=== PATIENT | male | born 1955 | race Caucasian/White ===

== ENCOUNTER 2016-12-23 10:04 | Observation (INO) | payer BC, OTHER ==
[2016-12-23] MEDS ORDERED: TEMAZEPAM 15 MG CAP PO PRN (10:14)
[2016-12-23] MEDS ORDERED: ACETAMINOPHEN 325 MG TAB PO PRN (10:14)
[2016-12-23] MEDS ORDERED: NS 1,000 ML IV SCH (10:14)
[2016-12-23] MEDS ORDERED: NITROGLYCERIN 0.4 MG BTL SL PRN (10:14)
[2016-12-23] MEDS ORDERED: FAMOTIDINE 20 MG TAB PO ONE (10:14)
[2016-12-23] MEDS ORDERED: diphenhydrAMINE 25 MG CAP PO ONE ×2 (10:14→10:30)
[2016-12-23] MEDS ORDERED: ASPIRIN EC 325 MG TAB PO ONE ×2 (10:14→13:45)
[2016-12-23] MEDS ORDERED: DIAZEPAM 5 MG TAB PO ONE (10:14)
--- NOTE | 2016-12-23 10:27 | CPEKG ---
Heart Rate: 64 RR Interval: 938 P-R Interval: 164 QRSD Interval: 80 QT Interval: 408 QTC Interval: 421 P [place]: 24 QRS [place]: -25 T Wave [place]: 45 EKG Severity - OTHERWISE NORMAL ECG - EKG Impression: SINUS RHYTHM EKG Impression: BORDERLINE LEFT AXIS DEVIATION Electronically Signed By: Vince Hill 24-Dec-2016 06:36:28
[2016-12-23] MEDS ORDERED: FAMOTIDINE 20 MG TAB ONE (10:30)
[2016-12-23] MEDS ORDERED: DIAZEPAM 5 MG TAB ONE (10:30)
[2016-12-23 10:47] LABS: % IMMATURE GRANULYOCYTES 0.3 % (0.0-1.1); ABSOLUTE IMMATURE GRANULOCYTES 0.03 10^3/uL (0.00-0.10); ADD DIFF? NO; ADD MORPH? NO; ADD SCAN? NO; ATYPICAL LYMPHOCYTE FLAG 0 (0-99); FRAGMENT RBC FLAG 0 (0-99); HEMATOCRIT 47.8 % (40.0-51.0); HEMOGLOBIN 15.8 g/dL (13.7-17.5); LEFT SHIFT FLG 0 (0-99); LIPEMIA HEMOLYSIS FLAG 80 (0-99); MEAN CELL HEMOGLOBIN 30.6 pg (27.9-34.1); MEAN CELL HEMOGLOBIN CONCENTR. 33.1 g/dL (32.4-36.7); MEAN CELL VOLUME 92.5 fL (81.5-99.8); MEAN PLATELET VOLUME 11.2 fL (8.7-11.7); PLATELET CLUMPS FLAG 10 (0-99); PLATELET COUNT 232 10^3/uL (150-400); RED BLOOD CELL COUNT 5.17 10^6/uL (4.40-6.38); RED CELL DISTRIBUTION WIDTH 13.1 % (11.5-15.2)
[2016-12-23 11:01] LABS: APTT 24.6 SEC (23.0-38.0); INR 0.96 (0.83-1.16); PROTIME(PATIENT) 12.7 SEC (12.0-15.0)
[2016-12-23 11:02] LABS: ANION GAP 11 mEq/L (8-16); CALCIUM 9.4 mg/dL (8.5-10.4); CARBON DIOXIDE 25 mEq/l (22-31); CHLORIDE 106 mEq/L (97-110); CHOLESTEROL 151 mg/dL (140-220); CHOLESTEROL/HDL RATIO 3.97 RATIO (1.00-4.97); CREATININE 0.8 mg/dL (0.7-1.3); GLOMERULAR FILTRATION RATE > 60; GLUCOSE 96 mg/dL (70-100); HIGH DENSITY LIPOPROTEIN 38 mg/dL (40-65); LDL/HDL RATIO 2.58 RATIO (1.00-3.64); LOW DENSITY LIPOPROTEIN 98 mg/dL (80-100); MAGNESIUM 1.9 mg/dL (1.6-2.3); NON-HIGH DENSITY LIPOPROTEIN 113 mg/dL (90-129); POTASSIUM 4.7 mEq/L (3.5-5.2); SODIUM 142 mEq/L (134-144); TRIGLYCERIDE 79 mg/dL (40-150); VERY LOW DENSITY LIPOPROTEINS 15 mg/dL (8-25)
[2016-12-23] MEDS ORDERED: fentaNYL 100 MCG/2 ML INJ ONE ×2 (11:43→12:28)
[2016-12-23] MEDS ORDERED: LIDOCAINE 1% 300 MG/30 ML SDV ONE (11:43)
[2016-12-23] MEDS ORDERED: MIDAZOLAM 2 MG/2 ML VIAL ONE ×3 (11:44→12:49)
[2016-12-23] MEDS ORDERED: IOPAMIDOL (ISOVUE-370) 150 ML BTL IV ONE (11:44)
--- NOTE | 2016-12-23 11:59 | PDHPUP ---
History & Physical Update H&P update statement: This history and physical update is based on an assessment of the patient which was completed after admission or registration (within 24 hours), but prior to the surgery/procedure. H&P update: H&P reviewed & patient examined, no change in patient's condition since H&P completed
--- NOTE | 2016-12-23 12:00 | PDPROPOC ---
Sedation Plan of Care Sedation Plan of Care: vital signs stable, mental status noted, patient educated of risks, benefits, alternatives, patient can tolerate sedation ASA Classification: ASA 2 Planned drugs: fentanyl, midazolam Mallampati Score: Class 2 Mallampati Reference Image: Patient passed 3-3-2 rule?: Yes
[2016-12-23] MEDS ORDERED: BIVALIRUDIN 250 MG/5 ML VIAL IV ONE (12:41)
[2016-12-23] MEDS ORDERED: TICAGRELOR 90 MG TAB ONE (13:06)
[2016-12-23] MEDS ORDERED: ATROPINE SULFATE 1 MG/10 ML SYR IVP PRN (13:45)
[2016-12-23] MEDS ORDERED: ONDANSETRON 4 MG/2 ML VIAL IVP PRN (13:45)
--- NOTE | 2016-12-23 13:53 | CPEKG ---
Heart Rate: 97 RR Interval: 619 QRSD Interval: 84 QT Interval: 392 QTC Interval: 498 QRS [place]: -19 T Wave [place]: 49 EKG Severity - ABNORMAL ECG - EKG Impression: ATRIAL FIBRILLATION, V-RATE 73-118 EKG Impression: BORDERLINE LEFT AXIS DEVIATION EKG Impression: BORDERLINE PROLONGED QT INTERVAL Electronically Signed By: Vince Hill 24-Dec-2016 06:36:40
--- NOTE | 2016-12-23 14:20 | CPIP ---
[f rep st] INVASIVE CARDIAC PROCEDURE DATE OF PROCEDURE: 12/23/2016 PROCEDURES: 1. Coronary angiography. 2. Left ventriculography. 3. Stenting of OM1 coronary artery. 4. Right lower extremity angiography via ipsilateral approach. INDICATIONS: 1. Class 3 angina. 2. Medical management with aspirin, metoprolol, atorvastatin and nitroglycerin. ACCESS: Patient was prepped and draped in sterile fashion. 1% lidocaine was used to anesthetize the right inguinal region. A 6-Cambodian introducer sheath was placed selectively into the right common fe moral artery via modified Seldinger technique. CORONARY ANGIOGRAPHY: A 6-Cambodian JL4 was advanced to the left main coronary artery and images obtain ed. The left main coronary artery bifurcated into an LAD and circumflex coronary arteries. The left main coronary artery appeared normal. The left anterior descending coronary artery gave rise to 2 p rominent diagonal branches. The left anterior descending coronary artery was diffusely diseased. In the mid vessel, there was a discrete 30% stenosis and in the mid to distal vessel there was a discre te 35% to potentially 40% stenosis. The diagonal arteries were free of any significant disease. The circumflex coronary artery gave rise to 1 prominent OM branch. The circumflex coronary artery had m ild diffuse disease throughout. There was no stenosis greater than 10%. The first OM artery was a m oderate to large-sized vessel. The first OM artery had a proximal 90% stenosis present with RU-3 f low. A 6-Cambodian JR4 was advanced to the right coronary artery and images obtained. The right campos ry artery was dominant. The right coronary artery was diffusely diseased in the midsegment with sten osis approaching 60%. LEFT VENTRICULOGRAPHY: A 6-Cambodian pigtail catheter was advanced into the left ventricle and images o btained. Left ventricle was normal in size and had normal systolic function. Estimated ejection fra ction was 70%. PERCUTANEOUS CORONARY INTERVENTION OF THE OM1 CORONARY ARTERY: A 6-Cambodian EBU 3.75 catheter was adva nced to the left main coronary artery and images obtained. Angiography demonstrated a 90% stenosis i n the proximal segment of the first OM artery. A Luge wire was placed in the distal vessel and posit ion verified by angiography. A 2.0 x 12 Emerge balloon was used to pre-dilate the lesion. Followup angiography demonstrated significant residual stenosis and RU-3 flow. A 2.25 x 16 Synergy drug-elu ting stent was then placed across the lesion and deployed. Followup angiography demonstrated incompl ete stent expansion and RU-3 flow. Stent was postdilated with a 2.5 x 15 noncompliant balloon. Fo llowup angiography demonstrated RU-3 flow and no residual stenosis. PERIPHERAL ANGIOGRAPHY VIA IPSILATERAL APPROACH: Peripheral angiography via ipsilateral approach was performed to evaluate the common iliac artery. While passing catheters through the common iliac art nina, there was a mild hang-up of the catheter. In addition, reversal of flow could be seen in the in ferior epigastric artery, indicating potential proximal disease. A Magic Torque wire was taken into the distal abdominal aorta. A straight flush catheter was then advanced over the Magic Torque wire a nd images obtained via hand injection. The common iliac artery bifurcated into the internal iliac ar addison and external iliac artery. The common iliac artery appeared to have areas of ectasia, as well a s areas of focal stenosis. It is unclear if this is secondary to atherosclerotic disease or previous scar tissue from surgery, as surgical clips could be seen following the path of the common iliac art nina. The internal iliac artery appeared to be occluded via surgical clip. The external iliac artery was free of any significant disease. There was no impairment in antegrade flow through the common i liac artery to external iliac artery. COMPLICATIONS: None. CONCLUSIONS: 1. 2-vessel coronary artery disease. 2. Normal left ventricular size and systolic function with an estimated ejection fraction 70%. 3. Status post successful Synergy stent placement in the OM1 coronary artery. 4. Consider stress test to evaluate the intermediate grade RCA lesion. 5. Peripheral vascular disease involving the common iliac artery, unclear if secondary to atheroscle rotic plaque versus surgical scar tissue. Consider CT angiogram. /[id number]/MODL
[2016-12-24] MEDS: TICAGRELOR 90 MG TAB PO SCH ×2 (00:56→10:18)
[2016-12-24 04:00] LABS: % IMMATURE GRANULYOCYTES 0.3 % (0.0-1.1); ABSOLUTE IMMATURE GRANULOCYTES 0.04 10^3/uL (0.00-0.10); ADD DIFF? NO; ADD MORPH? NO; ADD SCAN? NO; ATYPICAL LYMPHOCYTE FLAG 0 (0-99); FRAGMENT RBC FLAG 0 (0-99); HEMOGLOBIN 14.8 g/dL (13.7-17.5); LEFT SHIFT FLG 0 (0-99); LIPEMIA HEMOLYSIS FLAG 80 (0-99); MEAN CELL HEMOGLOBIN 30.5 pg (27.9-34.1); MEAN CELL HEMOGLOBIN CONCENTR. 32.9 g/dL (32.4-36.7); MEAN CELL VOLUME 92.6 fL (81.5-99.8); MEAN PLATELET VOLUME 11.5 fL (8.7-11.7); PLATELET CLUMPS FLAG 0 (0-99); PLATELET COUNT 216 10^3/uL (150-400); RED BLOOD CELL COUNT 4.86 10^6/uL (4.40-6.38); RED CELL DISTRIBUTION WIDTH 13.3 % (11.5-15.2)
[2016-12-24 04:09] LABS: ANION GAP 11 mEq/L (8-16); CALCIUM 9.1 mg/dL (8.5-10.4); CARBON DIOXIDE 22 mEq/l (22-31); CHLORIDE 106 mEq/L (97-110); CREATININE 0.7 mg/dL (0.7-1.3); GLOMERULAR FILTRATION RATE > 60; GLUCOSE 82 mg/dL (70-100); POTASSIUM 4.5 mEq/L (3.5-5.2); SODIUM 139 mEq/L (134-144)
[2016-12-24 07:57] VITALS: BP 148/81; PULSE 53; RESP 13; TEMP 97.8; O2SAT 94
[2016-12-24] MEDS ORDERED: ASPIRIN EC 81 MG TAB PO SCH (09:00)
[2016-12-24] MEDS ORDERED: ATORVASTATIN CALCIUM 40 MG PO SCH (09:00)
[2016-12-24] MEDS ORDERED: ATORVASTATIN CALCIUM 40 MG TAB PO SCH (09:00)
[2016-12-24] MEDS ORDERED: METOPROLOL SUCCINATE 25 MG PO SCH (09:00)
[2016-12-24] MEDS ORDERED: METOPROLOL SUCCINATE XR 25 MG TAB PO SCH (09:00)
--- NOTE | 2016-12-24 09:06 | CPEKG ---
Heart Rate: 52 RR Interval: 1154 P-R Interval: 180 QRSD Interval: 88 QT Interval: 460 QTC Interval: 428 P [place]: 29 QRS [place]: -19 T Wave [place]: 36 EKG Severity - OTHERWISE NORMAL ECG - EKG Impression: SINUS RHYTHM EKG Impression: BORDERLINE LEFT AXIS DEVIATION Electronically Signed By: Vince Hill 24-Dec-2016 15:16:01
[2016-12-24] MEDS ORDERED: LISINOPRIL 5 MG TAB PO SCH (10:00)
--- NOTE | 2016-12-24 12:27 | GDS ---
[f rep st] DISCHARGE SUMMARY ADMISSION DIAGNOSES: 1. Accelerated angina. 2. Hypertension. 3. Hyperlipidemia. 4. Current smoker. DISCHARGE DIAGNOSES: 1. Coronary artery disease, status post percutaneous coronary intervention to obtuse marginal with 2 .25 x 16 Synergy drug-eluting stent implantation in 1st obtuse marginal. 2. Hypertension. 3. Hyperlipidemia. 4. Tobacco abuse. 5. Sinus pause. PROCEDURES DONE DURING HOSPITALIZATION: 1. Electrocardiogram. 2. Diagnostic coronary catheterization. 3. Percutaneous coronary intervention of obtuse marginal with a 2.25 x 16 Synergy drug-eluting stent implantation done. BRIEF HISTORY: Please see H and P. The patient is a 61-year-old male with no significant history of heart disease, but history of hypertension, hyperlipidemia, and current smoker. Patient had recentl y seen Dr. Gunter in the office for report of chest pressure for the last year, has increased in frequ ency, with him reporting more recently of developing chest pressure after 5-10 seconds after walking. Due to his significant cardiac risk factors, and appeared to be exertional angina, it was decided t he patient would undergo diagnostic heart catheterization for further evaluation. HOSPITAL COURSE: Patient was admitted through the CVC, prepped for procedure, and taken to the [facility] catheterization lab. There, Dr. Shawn Greene, performed a diagnostic heart catheterization from th e right femoral artery approach. It was noted on testing, left main appeared normal, LAD gave to 2 p rominent diagonal branches with diffuse disease throughout, in mid vessel there was noted a 30% steno sis and mid to distal 35% to 40% stenosis. The diagonals were free of any significant disease, the c ircumflex artery gave rise to 1 prominent obtuse marginal, the circumflex artery had mild diffuse dis ease throughout, there was noted no stenosis greater than 10%, the 1st obtuse marginal was moderate t o large sized vessel, 1st ROM had a 90% stenosis with RU-3 flow. Right coronary artery was done wh ich showed the RCA was dominant, RCA was noted to have diffuse disease. In mid segment there was not ed a stenosis approaching 60%. LV gram was done which showed EF was 70% with no wall motion abnormal ities. At that time, percutaneous coronary intervention was done to 90% stenosis in the 1st obtuse m arginal, where a 2.25 x 16 drug-eluting stent was placed and post dilated with a 2.5 x 15 noncomplian t balloon. No complications. Right femoral artery was Angiosealed and patient was taken to the CVC for recovery. It was noted post procedure that patient had 1 episode in the [facility] which appeared to b e a sinus pause up to 3.5 seconds, but then resumed regular sinus rhythm. Patient was then taken to the telemetry floor, soon after having repeated sinus pause around 3.5 seconds. The patient does rep ort with each pause, he did feel a little lightheaded, but no loss of consciousness. It was decided to discontinue his metoprolol at that time. Throughout the night, on continuous cardiac monitoring, he had remained in sinus rhythm and no further pauses were noted. He denies any chest pressure or pa in overnight. He has been up and walking the unit without difficulties, and remaining in sinus rhyth m. PHYSICAL EXAMINATION: GENERAL: Done today, tall, mildly obese, male. He is alert and erick ented to person, place, time, and situation. Appears to be in no acute distress. CURRENT VITAL SIGN S: Blood pressure of 148/81, heart rate is 53 in sinus rhythm on the monitor. Respirations 13, satu rating 94% on room air. Temperature of 36.6 degrees Celsius. HEENT: Head is normocephalic. Lips a nd tongue are pink and moist with no signs of cyanosis. Conjunctivae pink. NECK: Trachea is midlin e, +2 carotid pulses bilateral. No auscultated bruits, no jugular vein distention. RESPIRATORY: Paige ngs clear to auscultation. No rhonchi, rales or wheezes. No accessory muscle use. No intercostal m uscle retraction noted. CARDIAC: Regular rate, regular rhythm, S1, S2, no S3, S4, gallops, rubs or murmur noted. ABDOMEN: Soft, nontender, bowel sounds x4 quadrants, no organomegaly, no palpable mas ses. SKIN: [place], warm, dry, no cyanosis, no clubbing, no peripheral edema. VASCULAR: +2 carotids bilateral, +2 radials bilateral, +2 posterior tibial and dorsal pedal pulses bilateral. GROIN SITE: Right groin site, catheter insertion site, with no redness, swelling, drainage, ecchymosis, or hemat layla. No auscultated bruit over site. LABORATORY STUDIES: Current laboratory studies show WBC of 12.81, hemoglobin of 14.8, hematocrit of 45.0, platelet count of 216. Sodium 139, potassium 4.5, chloride 106, CO2 of 22, BUN 16, creatinine 0.7, glucose 82, calcium 9.1. Noted yesterday on admission, his total cholesterol is 151, triglyceri dylan 79, LDL 98, HDL 38. STUDIES: Heart catheterization and percutaneous coronary intervention as mentioned above. This carolan ing's electrocardiogram shows sinus rhythm/bradycardia, leftward axis deviation. DISCHARGE DISPOSITION: Patient will be discharged home in stable condition. He is under activity re strictions, not lifting more than 10 pounds for next week and no strenuous activities for the next 2 weeks. DISCHARGE MEDICATIONS: Please see discharge medication reconciliation sheet. Note, patient has been started on dual anti-platelet therapy of aspirin at 81 mg p.o. daily and Brilinta 90 mg p.o. daily. Importance of taking anti-platelet therapy, status post drug-eluting stent implantation were explain ed to both patient and . They verbalized understanding. Note, the patient's metoprolol that he had recently been started on, has been discontinued, he has been mildly hypertensive, and started on lisinopril at 5 mg p.o. daily. He will continue new dose of atorvastatin as prescribed. DISCHARGE INSTRUCTIONS: Post percutaneous coronary intervention discharge instructions went over wit h the patient and his , that include medication compliance, activity restrictions, monitoring for signs of infection, bleeding precautions. They both verbalized understanding and have no questions. As mentioned above, patient has been started on new dose of lisinopril at 5 mg p.o. daily, have ask ed him to get a basic metabolic panel done the day before his followup visit with Dr. Gunter on . Also because of noted pause post procedure, we will place a 48 hour Holter monitor, which is scheduled to be done this at our [place] office to evaluate for any other possible arrhyt hmias. At the time of discharge, patient and his both verbalized understanding all instructions , have no questions. They have been told that if any questions or concerns post discharge, they are to call our office or return to the hospital. Total time spent on discharge greater than 30 minutes. /[id number]/MODL
== END 2016-12-24 12:24 | disposition home or self-care (01) ==
LOC: FCATH 10:04 → F2W 13:45
PROVIDERS: ADMIT Internal Medicine Cardiovascular Disease; ATTEND Internal Medicine Cardiovascular Disease
PROC: 4A023N7 Measurement of Cardiac Sampling and Pressure, Left Heart, Percutaneous Approach (ICD-10-PCS; principal; 2016-12-23)
PROC: B2151ZZ Fluoroscopy of Left Heart using Low Osmolar Contrast (ICD-10-PCS; principal; 2016-12-23)
PROC: B2111ZZ Fluoroscopy of Multiple Coronary Arteries using Low Osmolar Contrast (ICD-10-PCS; principal; 2016-12-23)
PROC: 027034Z Dilation of Coronary Artery, One Artery with Drug-eluting Intraluminal Device, Percutaneous Approach (ICD-10-PCS; principal; 2016-12-23)
DX: I25.110 Atherosclerotic heart disease of native coronary artery with unstable angina pectoris (principal); I49.5 Sick sinus syndrome; I73.9 Peripheral vascular disease, unspecified; I10 Essential (primary) hypertension; E78.5 Hyperlipidemia, unspecified; F17.210 Nicotine dependence, cigarettes, uncomplicated; E66.09 Other obesity due to excess calories; Z68.32 Body mass index [BMI] 32.0-32.9, adult
CPT/HCPCS: 75710; 92928; 93005; 93458; C1725; C1769; C1887; G0378; C1760; C1874; C9600; J0583; J1644; J2250; J3010; Q9967

== ENCOUNTER 2016-12-31 13:00 | Observation (INO) | payer OTHER ==
[2016-12-31] MEDS ORDERED: ACETAMINOPHEN 325 MG TAB PO PRN (15:24)
[2016-12-31] MEDS ORDERED: ONDANSETRON 4 MG/2 ML VIAL IVP PRN (15:24)
[2016-12-31] MEDS ORDERED: ONDANSETRON DISINTEGRATING 4 MG TAB PO PRN (15:24)
[2016-12-31] MEDS ORDERED: NITROGLYCERIN 0.4 MG BTL SL PRN ×2 (16:10→17:08)
--- NOTE | 2016-12-31 16:14 | PDCARPN ---
Cardiology Progress Note Chief Complaint: Episodes of shortness of breath Assessment/Plan: Assessment: Please see Dr. Haley is office note dated 12/20/2016, to be used as history and physical. Patient is a 61-year-old male direct admission from home. Significant past history that includes hypertension, hyperlipidemia, current smoker, remote testicular cancer (30 years ago with single test removed), and more recently, noted history of CAD with recent cardiac catheterization on December 23 with percutaneous coronary intervention of the obtuse marginal with a 2.25 x 16 synergy WILI implantation. Patient was noted post PCI, in recovery, to have 1 episode of sinus arrest lasting 3.5 seconds, and 1 repeated episode 30 minutes later of another pause at 3.5 second. During both of those episodes, the patient report feeling of extreme shortness of breath with some lightheadedness. During the rest of his hospitalization, he remained on continuous cardiac monitoring, which no further episodes were noted. He had been scheduled an outpatient Holter monitoring, in which he had done on December 26, returning the device, examination of the data was done today, it was noted that he had 17 pauses that were greater than 2 seconds, with the longest at 5.4 seconds. Patient reporting, since discharge from hospital of episodes of feeling as if he becomes very extremely short of breath, that last for few seconds, occasionally associated with lightheadedness (similar to what he had experience with pause during recent hospitalization). Denies of any actual syncopal events. Reports no episodes of chest pressure or pain since hospital discharge. Denies of any palpitations, orthopnea, PND, edema. Denies of any symptoms suggestive of TIA or CVA. Patient has had recent laboratory studies drawn yesterday as an outpatient should showing sodium of 141, potassium 4.2, chloride 105, CO2 23, BUN 16, creatinine 0.9, glucose 88. Plan: 1. Sinus arrest: Patient has had a recent Holter monitoring showing 17 episodes of sinus arrest, greater than 2 seconds, longest 1 was noted to be at 5.4 seconds. Reports associated symptoms extremely short of breath with occ lightheadedness. Will plan to admit patient, and have him on continuous cardiac monitoring. He will be made NPO after 5:00 a.m. tomorrow, with plans of a permanent pacemaker implantation to be done by Dr. Najera at 1:00 p.m.. 2. Coronary artery disease: Patient denies of any chest pain or symptoms suggesting of ischemia. History of recent PCI with WILI implantation to , we will continue him on current anti-platelet therapy aspirin at 81 mg p.o. q.day and Brilinta at 90 mg p.o. twice daily. Patient does raise concern about the more of Brilinta, we will have him get genetically tested today to see if he is in adequate clopidogrel metabolizer, if so, then consideration of switching him over to clopidogrel in the next 30 days. 3. Hypertension: Will plan on patient to continue on home dose of lisinopril, monitor blood pressure during hospitalization, adjust as necessary at 4. Hyperlipidemia: Patient with recent diagnosis of CAD, has recently been started on atorvastatin, will continue dosage while in hospital, plan on him having a repeated fasting lipid and liver panel done in 5 weeks. 5. Tobacco abuse: Patient continues to smoke, but reports he is attempting to cut back. He has been referred to the [place] [facility]. 6. DVT prophylaxis: Have ordered patient to have Braeden hose placed, will hold off on starting him on any anticoagulation at this time due to plan surgery tomorrow. Continue anti-platelet therapy as above. 7. Code status: Patient is a full code. 12/31/16 16:14 Subjective: Patient denies of any chest pressure orthopnea, PND, edema, near-syncope, or syncopal events. Does report occasional episode of feeling that he can't catch his breath. Is associated with lightheadedness. Reviewed/Discussed With: other (Dr Hill and Dr Najera) Result Diagrams: 01/02/17 04:26 01/02/17 04:26 - Physical Exam Constitutional: healthy appearing, no apparent distress, obese Ears, Nose, Mouth, Throat: moist mucous membranes Cardiovascular: regular rate and rhythm, no murmurs, no rubs, no gallops, pulses symmetric bilat, No jugular vein distention, No carotid bruit Peripheral Pulses: 2+: carotid (R), carotid (L) Respiratory: clear to auscultate bilat, no crackles, no wheezes, No reduced air movement Gastrointestinal: normoactive bowel sounds Skin: no rashes, warm, no edema Neurologic: AAOx3 Psychiatric: cooperative, interactive, following commands ICD10 Worksheet Patient Problems: Problems Problem Status Onset CAD (coronary artery disease), [place] coronary artery Acute Sinus arrest Acute - ICD10 Problem Qualifiers (1) Sinus arrest (2) CAD (coronary artery disease), [place] coronary artery
[2016-12-31 17:56] LABS: % IMMATURE GRANULYOCYTES 0.3 % (0.0-1.1); ABSOLUTE IMMATURE GRANULOCYTES 0.04 10^3/uL (0.00-0.10); ADD DIFF? NO; ADD MORPH? NO; ADD SCAN? NO; ATYPICAL LYMPHOCYTE FLAG 10 (0-99); FRAGMENT RBC FLAG 0 (0-99); HEMATOCRIT 41.3 % (40.0-51.0); HEMOGLOBIN 13.9 g/dL (13.7-17.5); LEFT SHIFT FLG 0 (0-99); LIPEMIA HEMOLYSIS FLAG 80 (0-99); MEAN CELL HEMOGLOBIN 30.5 pg (27.9-34.1); MEAN CELL HEMOGLOBIN CONCENTR. 33.7 g/dL (32.4-36.7); MEAN CELL VOLUME 90.8 fL (81.5-99.8); MEAN PLATELET VOLUME 11.5 fL (8.7-11.7); PLATELET CLUMPS FLAG 10 (0-99); PLATELET COUNT 226 10^3/uL (150-400); RED BLOOD CELL COUNT 4.55 10^6/uL (4.40-6.38); RED CELL DISTRIBUTION WIDTH 13.1 % (11.5-15.2)
--- NOTE | 2016-12-31 20:13 | CPEKG ---
Heart Rate: 72 RR Interval: 833 P-R Interval: 172 QRSD Interval: 86 QT Interval: 412 QTC Interval: 451 P [place]: 64 QRS [place]: -9 T Wave [place]: 74 EKG Severity - BORDERLINE ECG - EKG Impression: SINUS RHYTHM EKG Impression: BORDERLINE T ABNORMALITIES, ANT-LAT LEADS Electronically Signed By: Kathleen Akhtar 01-Jan-2017 10:00:37
[2016-12-31] MEDS ORDERED: TICAGRELOR 90 MG TAB PO SCH (21:00)
[2016-12-31] MEDS: TICAGRELOR 90 MG TAB PO SCH (21:12)
[2017-01-01 05:34] LABS: INR 1.07 (0.83-1.16); PROTIME(PATIENT) 13.8 SEC (12.0-15.0)
[2017-01-01 05:35] LABS: APTT 26.3 SEC (23.0-38.0)
[2017-01-01 05:37] LABS: ALANINE AMINOTRANSFERASE 32 IU/L (21-72); ALBUMIN 3.4 g/dL (3.5-5.0); ALKALINE PHOSPHATASE 65 IU/L (38-126); ANION GAP 10 mEq/L (8-16); ASPARTATE AMINOTRANSFERASE 20 IU/L (17-59); CALCIUM 9.2 mg/dL (8.5-10.4); CARBON DIOXIDE 23 mEq/l (22-31); CHLORIDE 106 mEq/L (97-110); CREATININE 0.8 mg/dL (0.7-1.3); GLOMERULAR FILTRATION RATE > 60; GLUCOSE 91 mg/dL (70-100); POTASSIUM 4.5 mEq/L (3.5-5.2); SODIUM 139 mEq/L (134-144); TOTAL PROTEIN 6.3 g/dL (6.3-8.2)
[2017-01-01] MEDS ORDERED: BACITRACIN IRRIGATION/NS 50,000 UNITS/1,000 ML BTL IRR ONE (06:00)
[2017-01-01] MEDS ORDERED: NS 1,000 ML IV ONE ×2 (06:00→12:00)
[2017-01-01] MEDS ORDERED: DIAZEPAM 5 MG TAB PO ONE ×3 (06:00→12:15)
[2017-01-01] MEDS ORDERED: diphenhydrAMINE 25 MG CAP PO ONE ×3 (06:00→12:15)
[2017-01-01] MEDS ORDERED: ceFAZolin 2 GM/DEXTROSE 100 ML IV ONE (06:00)
[2017-01-01] MEDS: TICAGRELOR 90 MG TAB PO SCH ×2 (08:18→19:58)
[2017-01-01] MEDS: LISINOPRIL 5 MG TAB PO SCH (08:18)
[2017-01-01] MEDS: ATORVASTATIN CALCIUM 40 MG TAB PO SCH (08:18)
[2017-01-01] MEDS: TAMSULOSIN HCL 0.4 MG CAP PO SCH (08:19)
[2017-01-01] MEDS: ASPIRIN EC 81 MG TAB PO SCH (08:19)
[2017-01-01] MEDS ORDERED: LISINOPRIL 5 MG TAB PO SCH (09:00)
[2017-01-01] MEDS ORDERED: TAMSULOSIN HCL 0.4 MG CAP PO SCH (09:00)
[2017-01-01] MEDS ORDERED: ASPIRIN 81 MG CHEWABLE TAB PO SCH (09:00)
[2017-01-01] MEDS ORDERED: ATORVASTATIN CALCIUM 40 MG TAB PO SCH (09:00)
[2017-01-01] MEDS ORDERED: LIDO/EPI 1% **for epidural** 30 ML SDV ONE (12:38)
[2017-01-01] MEDS ORDERED: fentaNYL 100 MCG/2 ML INJ ONE ×2 (12:38→13:31)
[2017-01-01] MEDS ORDERED: MIDAZOLAM 2 MG/2 ML VIAL ONE ×2 (12:38→13:31)
[2017-01-01] MEDS ORDERED: LIDOCAINE 1% 300 MG/30 ML SDV ONE (12:38)
[2017-01-01] MEDS ORDERED: BUPIVACAINE 0.5% 30 ML SDV ONE (12:38)
[2017-01-01] MEDS ORDERED: IOPAMIDOL (ISOVUE-300) 150 ML BTL ONE (12:39)
--- NOTE | 2017-01-01 12:52 | PDPROPOC ---
Sedation Plan of Care Sedation Plan of Care: vital signs stable, mental status noted, patient educated of risks, benefits, alternatives, patient can tolerate sedation ASA Classification: ASA 2 Planned drugs: fentanyl, midazolam Mallampati Score: Class 1 Mallampati Reference Image: Patient passed 3-3-2 rule?: Yes
--- NOTE | 2017-01-01 14:49 | CPEKG ---
Heart Rate: 62 RR Interval: 968 P-R Interval: 172 QRSD Interval: 78 QT Interval: 416 QTC Interval: 423 P [place]: 46 QRS [place]: -16 T Wave [place]: 56 EKG Severity - OTHERWISE NORMAL ECG - EKG Impression: SINUS RHYTHM EKG Impression: BORDERLINE LEFT AXIS DEVIATION Electronically Signed By: Kathleen Akhtar 01-Jan-2017 15:04:03
--- NOTE | 2017-01-01 14:54 | ASMTCMCOM ---
CM Note CM Note Notes: Reviewed patient's chart/progress notes. No Case Management needs identified at this time. Anticipate discharge home with when medically stable. Case Management is available for any needs/changes. Date Signed: 01/01/2017 02:53 PM Electronically Signed By:María Wolff RN
--- NOTE | 2017-01-01 15:43 | CPIP ---
[f rep st] INVASIVE CARDIAC PROCEDURE DATE OF PROCEDURE: 01/01/2017 INDICATIONS: The patient is 61 years old and has a recent history of stenting of an obtuse marginal branch. In the recovery room following his PCI, he was noted to have pauses of 5 seconds associated with presyncope. As an outpatient, a Holter monitor was performed which indicated multiple pauses up to 5.4 seconds in duration, also associated with a sensation of breathlessness. PROCEDURE: Implantation of a dual-chamber pacemaker. TECHNIQUE: Following informed consent, the patient was brought to the cardiac catheterization formerly [facility] in a fasting state. The left chest was prepped and draped in the usual sterile fashion. 2% lid ocaine was infiltrated in the skin below the left clavicle. Using a #10 blade, a 3 cm incision was m nolvia and using blunt and sharp dissection, the pacemaker pocket was fashioned. All bleeders were caut erized. A venogram was performed which identified a widely patent axillary subclavian system. Using the modified Seldinger technique, access was gained on 2 occasions to the axillary vein at the level of the 1st rib. Two individual 0.035 J-wires were placed. Using the 1st of these wires, a 6-F rench sheath was placed. This allowed placement of the right ventricular lead in the right ventricul ar apex under fluoroscopy. The lead was screwed into place and tested with adequate capture and sens ing and the sheath torn away. The lead was then secured to the pacemaker pocket floor using 0 Ethibo nd. Using the remaining J-wire, a 2nd 6-Ukrainian sheath was placed. The right atrial lead was brought to the field and passed into the right atrium under fluoroscopy. The lead was torn away and the clarice d positioned in the right atrial appendage and screwed into place. Excellent capture and sensing was noted and the lead secured to the pacemaker pocket floor using 0 Ethibond. At this point, the pocket was inspected. The pocket was irrigated with antibiotic-containing solutio n. Hemostatic powder was then applied. The device was brought to the field. Both leads were identi fied by serial number and affixed to the header according to green prize packer guidelines. The device and the redundant portions of both leads were then placed in the pocket. The pocket was then closed ini tially with 2 layers of interrupted suture using 2-0 and 3-0 Vicryl and finally running 3-0 Stratafix for the skin. Steri-Strips and a dry dressing were applied. DEVICE INFORMATION: The implanted pacemaker is a Biotronik Edora 8 DRT, reference #[id number], serial #[id number]. The atrial lead is a Biotronik Solia S45, reference number [id number], serial number [id number]. The ventricular lead is a Biotronik Solia S53, reference number [id number], serial number [id number]. In the atrium, sensed P waves were 4.2 mV with a capture threshold of 0.6 V at 0.4 msec and a lead imped ance of 507 ohms. In the ventricle, sensed R-waves were 5.2 mV with capture threshold 0.4 V, 0.4 mse c, lead impedance 624 ohms. COMPLICATIONS: None. DISPOSITION: The patient will be recovered in the CVC. He will be discharged back to his room and jace lamas sent home in the morning. /[id number]/MODL
[2017-01-01] MEDS: HYDROCODONE/APAP 5/325 TAB PO PRN (19:57)
[2017-01-02] MEDS: HYDROCODONE/APAP 5/325 TAB PO PRN ×2 (02:16→09:17)
[2017-01-02 05:44] LABS: % IMMATURE GRANULYOCYTES 0.4 % (0.0-1.1); ABSOLUTE IMMATURE GRANULOCYTES 0.05 10^3/uL (0.00-0.10); ADD DIFF? NO; ADD MORPH? NO; ADD SCAN? NO; ATYPICAL LYMPHOCYTE FLAG 0 (0-99); FRAGMENT RBC FLAG 0 (0-99); HEMATOCRIT 41.2 % (40.0-51.0); HEMOGLOBIN 13.4 g/dL (13.7-17.5); LEFT SHIFT FLG 0 (0-99); LIPEMIA HEMOLYSIS FLAG 80 (0-99); MEAN CELL HEMOGLOBIN 30.3 pg (27.9-34.1); MEAN CELL HEMOGLOBIN CONCENTR. 32.5 g/dL (32.4-36.7); MEAN CELL VOLUME 93.2 fL (81.5-99.8); MEAN PLATELET VOLUME 12.1 fL (8.7-11.7); PLATELET CLUMPS FLAG 0 (0-99); PLATELET COUNT 222 10^3/uL (150-400); RED BLOOD CELL COUNT 4.42 10^6/uL (4.40-6.38); RED CELL DISTRIBUTION WIDTH 13.2 % (11.5-15.2)
[2017-01-02 05:56] LABS: ANION GAP 7 mEq/L (8-16); CARBON DIOXIDE 27 mEq/l (22-31); CHLORIDE 103 mEq/L (97-110); CREATININE 0.9 mg/dL (0.7-1.3); GLOMERULAR FILTRATION RATE > 60; GLUCOSE 94 mg/dL (70-100); POTASSIUM 4.7 mEq/L (3.5-5.2); SODIUM 137 mEq/L (134-144)
--- NOTE | 2017-01-02 08:56 | CPEKG ---
Heart Rate: 58 RR Interval: 1034 P-R Interval: 172 QRSD Interval: 86 QT Interval: 424 QTC Interval: 417 P [place]: 43 QRS [place]: -6 T Wave [place]: 42 EKG Severity - NORMAL ECG - EKG Impression: SINUS RHYTHM Electronically Signed By: Kathleen Akhtar 02-Jan-2017 09:53:22
[2017-01-02] MEDS: ASPIRIN EC 81 MG TAB PO SCH (09:11)
[2017-01-02] MEDS: LISINOPRIL 5 MG TAB PO SCH (09:12)
[2017-01-02] MEDS: TAMSULOSIN HCL 0.4 MG CAP PO SCH (09:13)
[2017-01-02] MEDS: ATORVASTATIN CALCIUM 40 MG TAB PO SCH (09:13)
[2017-01-02] MEDS: TICAGRELOR 90 MG TAB PO SCH (09:13)
[2017-01-02 11:42] VITALS: PULSE 60; RESP 15; TEMP 98; O2SAT 97
[2017-01-02 11:44] VITALS: BP 146/84
--- NOTE | 2017-01-02 16:13 | ASDISCHSUM ---
Discharge Information Plan Status:Home with No Needs Medically Cleared to Leave:01/02/2017 Discharge Date:01/02/2017 01:26 PM CM D/C Disposition:Home, Routine, Self-Care ADT D/C Disposition:Home, Routine, Self-Care Projected Discharge Date:01/02/2017 12:00 AM Transportation at D/C: Discharge Delay Reason: Follow-Up Date:01/02/2017 12:00 AM Discharge Slot: Final Diagnosis: Placement Information Patient Contact Information Contact Name:CASSI Relationship: Address:[address] [place] Alternate Phone: State/Zip Code:[place] [address] Email: Financial Information Financial Class:HMO and PPO Plans Primary Plan Desc:[employer] PPO Primary Plan Number:[id number] Secondary Plan Desc: Secondary Plan Number: Assessment Information BC CM Progress Note CM Note CM Note Notes: Reviewed patient's chart/progress notes. No Case Management needs identified at this time. Anticipate discharge home with when medically stable. Case Management is available for any needs/changes. Date Signed: 01/01/2017 02:53 PM Electronically Signed By:María Wolff RN Intervention Information
--- NOTE | 2017-01-02 18:37 | GDS ---
[f rep st] DISCHARGE SUMMARY ADMIT DIAGNOSES: 1. Sinus pauses. 2. Planned pacemaker placement. DISCHARGE DIAGNOSES: 1. Biotronik pacemaker placement with no complications. 2. Sinus pauses. 3. Coronary artery disease, status post stent recently. COURSE OF HOSPITALIZATION: The patient was admitted to the hospital previously on December 23, ray ving a cardiac catheterization with PCI of the obtuse marginal, with a WILI stent. During his recover y period, it was noticed on telemetry that he had 1 episode of sinus arrest lasting 3.5 seconds, and 1 repeated episode 30 minutes later of another pause of 3.5 seconds. He was symptomatic with these e pisodes, having shortness of breath and lightheadedness. There were no further episodes during that hospitalization. He was sent home on a Holter monitor, which was returned on December 26, noting 17 pauses that were greater than 2 seconds with the longest at 5.4 seconds. It was recommended that he present back to the hospital for a pacemaker placement. He was taken to the research laboratory manager by Dr. Robert Najera on January 01 for placement of a Biotronik perma nent pacemaker. This was accomplished with no complications. He has remained on Brilinta 90 mg twic e daily, due to his recent drug-eluting stent placement. He did have bleeding at the pacemaker incis ion site requiring overnight pressure dressing. This morning, no noted residual bleeding. There was no induration, ecchymosis over the area. He was experiencing incisional discomfort that was relieve d with analgesic medication. His pacemaker was checked this morning, finding it functioning normal. He has been up ambulating with no lightheadedness or dizziness. At this time, he currently is [facility] for discharge. MEDICATION ALLERGIES: To prochlorperazine. DISCHARGE MEDICATIONS: Include Flomax 0.4 mg daily, Lipitor 40 mg daily, Nitrostat 0.4 mg sublingual as needed for chest pain. Tylenol 325 mg 1 or 2 tablets 4 times daily as needed for pain, not to ex ceed 3000 mg daily. Lisinopril 5 mg daily. Brilinta 90 mg twice daily. Aspirin enteric-coated 81 m g daily. PHYSICAL EXAM: On day of discharge: VITAL SIGNS: Blood pressure 141/69, heart rate 60, oxygen satu ration 36.7 Celsius. HEART: Rate is regular. No murmurs, rubs, gallops. LUNGS: Sounds are clear to auscultation. No wheezes, rales, or rhonchi. CHEST: No incisional drainage or induration; howev er, he does have discomfort at the site. EXTREMITIES: No edema with pulses 2+ bilaterally. LAB: 01/02/2017: White count 12.82, hemoglobin 13.4, hematocrit 41.2. Sodium 137, potassium 4.7, c reatinine 0.9, GFR greater than 60, glucose 94. EKG 01/02/2017: Heart rate 58, sinus rhythm. Chest x-ray on 01/02/2017, post pacemaker placement: Pacer device was noted in left chest wall associated with bipolar pacer leads that are stable in the expected position. No evidence of delayed pneumotho rax, no pulmonary consolidation or pleural effusion. Heart size and pulmonary vascularity are normal . Impression: Excellent pacer position. PROCEDURE PERFORMED: 01/01/2017, pacemaker placement procedure. Implantation of dual chamber Biotronik pacemaker. Device information: Biotronik Edora 8 DRT, reference number [id number], serial number [id number]. Atrial lead: Biotronik Solia S45, reference number 451373, serial number [id number]. Ventricular lead: Biotronik Solia S53, reference number [id number], serial number [id number]. There were no complications of pacemaker placement. DISCHARGE PLAN: He is discharged home with pacemaker dressing in place. Dressing was changed prior to discharge. He is to follow up for pacemaker evaluation in 1 week. Wound check will be done at that time. This is scheduled for 01/07 at 11:30 in the [place] office. He will follow up with Dread Zapata, nurse practitioner, on January 22 at the [place] office. No driving for 2 weeks. May return to work in 1-2 weeks. Pacemaker precautions were reviewed with him, and written information provided. No heavy lifting, pushing, pulling greater than 10 pounds for 4-6 weeks. No using left arm above shoulder level for 4-6 weeks. All questions have been answered. His was present for our discussion. At this time, he currently is stable for discharge. /[id number]/MODL
== END 2017-01-02 13:26 | disposition home or self-care (01) ==
LOC: F2W 16:05 → INTOOBSV 16:05 → EDSTATUS 01-01 13:00 → OBSVTOIN 01-01 16:00 → INTOOBSV 01-01 16:00
PROVIDERS: ADMIT Internal Medicine Cardiovascular Disease; ATTEND Internal Medicine Cardiovascular Disease
PROC: 02H63JZ Insertion of Pacemaker Lead into Right Atrium, Percutaneous Approach (ICD-10-PCS; principal; 2016-12-31)
PROC: 0JH606Z Insertion of Pacemaker, Dual Chamber into Chest Subcutaneous Tissue and Fascia, Open Approach (ICD-10-PCS; principal; 2016-12-31)
PROC: 02HK3JZ Insertion of Pacemaker Lead into Right Ventricle, Percutaneous Approach (ICD-10-PCS; principal; 2016-12-31)
DX: I49.5 Sick sinus syndrome (principal); I25.10 Atherosclerotic heart disease of native coronary artery without angina pectoris; Z95.5 Presence of coronary angioplasty implant and graft; Z85.47 Personal history of malignant neoplasm of testis; Z72.0 Tobacco use; E66.9 Obesity, unspecified; E78.5 Hyperlipidemia, unspecified; I10 Essential (primary) hypertension
CPT/HCPCS: 33208; 71010; 71020; 93005; G0378; G0379; 81225-90; C1785; C1898; J0690; J2250; J3010; Q9967

== ENCOUNTER 2017-01-27 06:33 | Observation (INO) | payer OTHER ==
[2017-01-27] MEDS ORDERED: DIAZEPAM 5 MG TAB PO ONE (06:38)
[2017-01-27] MEDS ORDERED: diphenhydrAMINE 25 MG CAP PO ONE ×2 (06:38→07:20)
[2017-01-27] MEDS ORDERED: FAMOTIDINE 20 MG TAB PO ONE (06:38)
[2017-01-27] MEDS ORDERED: ASPIRIN EC 325 MG TAB PO ONE ×2 (06:38→07:21)
[2017-01-27] MEDS ORDERED: NS 1,000 ML IV ONE (06:38)
--- NOTE | 2017-01-27 07:13 | CPEKG ---
Heart Rate: 63 RR Interval: 952 P-R Interval: 168 QRSD Interval: 82 QT Interval: 404 QTC Interval: 414 P [place]: 53 QRS [place]: -2 T Wave [place]: 48 EKG Severity - NORMAL ECG - EKG Impression: SINUS RHYTHM Electronically Signed By: Shawn Gaming 30-Jan-2017 14:02:42
[2017-01-27 07:17] LABS: % IMMATURE GRANULYOCYTES 0.3 % (0.0-1.1); ABSOLUTE IMMATURE GRANULOCYTES 0.03 10^3/uL (0.00-0.10); ADD DIFF? NO; ADD MORPH? NO; ADD SCAN? NO; ATYPICAL LYMPHOCYTE FLAG 0 (0-99); FRAGMENT RBC FLAG 0 (0-99); HEMATOCRIT 42.8 % (40.0-51.0); HEMOGLOBIN 14.7 g/dL (13.7-17.5); LEFT SHIFT FLG 0 (0-99); LIPEMIA HEMOLYSIS FLAG 90 (0-99); MEAN CELL HEMOGLOBIN 31.2 pg (27.9-34.1); MEAN CELL HEMOGLOBIN CONCENTR. 34.3 g/dL (32.4-36.7); MEAN CELL VOLUME 90.9 fL (81.5-99.8); MEAN PLATELET VOLUME 11.3 fL (8.7-11.7); PLATELET CLUMPS FLAG 0 (0-99); PLATELET COUNT 201 10^3/uL (150-400); RED BLOOD CELL COUNT 4.71 10^6/uL (4.40-6.38); RED CELL DISTRIBUTION WIDTH 13.4 % (11.5-15.2)
[2017-01-27] MEDS ORDERED: FAMOTIDINE 20 MG TAB ONE (07:20)
[2017-01-27] MEDS ORDERED: DIAZEPAM 5 MG TAB ONE (07:21)
[2017-01-27 07:23] LABS: INR 0.98 (0.83-1.16); PROTIME(PATIENT) 12.9 SEC (12.0-15.0)
[2017-01-27 07:28] LABS: ANION GAP 11 mEq/L (8-16); CALCIUM 9.3 mg/dL (8.5-10.4); CARBON DIOXIDE 23 mEq/l (22-31); CHLORIDE 106 mEq/L (97-110); CHOLESTEROL 120 mg/dL (140-220); CHOLESTEROL/HDL RATIO 3.64 RATIO (1.00-4.97); CREATININE 0.9 mg/dL (0.7-1.3); GLOMERULAR FILTRATION RATE > 60; GLUCOSE 105 mg/dL (70-100); HIGH DENSITY LIPOPROTEIN 33 mg/dL (40-65); LDL/HDL RATIO 2.12 RATIO (1.00-3.64); LOW DENSITY LIPOPROTEIN 70 mg/dL (80-100); MAGNESIUM 1.8 mg/dL (1.6-2.3); NON-HIGH DENSITY LIPOPROTEIN 87 mg/dL (90-129); POTASSIUM 4.3 mEq/L (3.5-5.2); SODIUM 140 mEq/L (134-144); TRIGLYCERIDE 86 mg/dL (40-150); VERY LOW DENSITY LIPOPROTEINS 17 mg/dL (8-25)
[2017-01-27] MEDS ORDERED: LIDOCAINE 1% 300 MG/30 ML SDV ONE (08:13)
[2017-01-27] MEDS ORDERED: MIDAZOLAM 2 MG/2 ML VIAL ONE (08:14)
[2017-01-27] MEDS ORDERED: IOPAMIDOL (ISOVUE-370) 150 ML BTL IV ONE (08:14)
[2017-01-27] MEDS ORDERED: fentaNYL 100 MCG/2 ML INJ ONE ×2 (08:14→09:00)
[2017-01-27] MEDS ORDERED: BIVALIRUDIN 250 MG/5 ML VIAL IV ONE (09:00)
[2017-01-27] MEDS ORDERED: ATROPINE SULFATE 1 MG/10 ML SYR ONE (09:43)
[2017-01-27] MEDS ORDERED: ONDANSETRON 4 MG/2 ML VIAL IVP PRN (10:20)
[2017-01-27] MEDS ORDERED: NITROGLYCERIN 0.4 MG BTL SL PRN (10:20)
[2017-01-27] MEDS ORDERED: LORazepam 2 MG/ML INJ IVP PRN (10:20)
[2017-01-27] MEDS ORDERED: TEMAZEPAM 15 MG CAP PO PRN (10:20)
[2017-01-27] MEDS ORDERED: ATROPINE SULFATE 1 MG/10 ML SYR IVP PRN (10:20)
[2017-01-27] MEDS ORDERED: HYDROCODONE/APAP 5/325 TAB PO PRN (10:20)
[2017-01-27] MEDS ORDERED: OXYCODONE/APAP 5/325 TAB PO PRN (10:20)
--- NOTE | 2017-01-27 10:31 | CPEKG ---
Heart Rate: 57 RR Interval: 1053 P-R Interval: 184 QRSD Interval: 86 QT Interval: 464 QTC Interval: 452 P [place]: 55 QRS [place]: -13 T Wave [place]: 56 EKG Severity - NORMAL ECG - EKG Impression: SINUS RHYTHM Electronically Signed By: Shawn Gaming 30-Jan-2017 14:02:54
--- NOTE | 2017-01-27 10:58 | CPIP ---
[f rep st] INVASIVE CARDIAC PROCEDURE DATE OF PROCEDURE: 01/27/2017 PROCEDURES: 1. Coronary angiography. 2. Stenting of right coronary artery with Synergy drug-eluting stent. 3. Left lower extremity angiography via ipsilateral approach, with catheter placed in the left commo n iliac artery. INDICATION: 1. Angina. 2. Abnormal nuclear stress test with inferior ischemia that is an intermediate risk. 3. Peripheral vascular disease. ACCESS: The patient was prepped and draped in sterile fashion. 1% lidocaine was used to anesthetize the left inguinal region. A 6-Irish introducer sheath was placed selectively in the left common fe moral artery via a modified Seldinger technique. CORONARY ANGIOGRAPHY: A 6-Irish JL4 was advanced to the left main coronary artery and images obtain ed. The left main coronary artery bifurcated into an LAD and circumflex coronary arteries. The left main coronary artery appeared normal. The left anterior descending coronary artery had mild diffuse disease in the proximal mid segments. There was no stenosis greater than 20%. The circumflex coron lisa artery had mild diffuse disease throughout. The circumflex coronary artery gave rise to one prom inent branching OM artery. A previously placed stent could be seen in the proximal portion of the OM artery. The previously placed stent was widely patent, with no evidence of significant in-stent res tenosis. A 6-Irish JR4 was advanced to the right coronary artery and images obtained. The right coronary art nina was dominant. The right coronary artery is diseased in the mid segment. In the mid one portion of the vessel, there appeared to be a 70% eccentric calcified plaque present. PERCUTANEOUS CORONARY INTERVENTION OF THE RIGHT CORONARY ARTERY: A 6-Irish JR4 was advanced to the right coronary artery and images obtained. A Luge wire was placed in the distal vessel and position verified by angiography. A 2.5 x 12 Emerge balloon was placed across the lesion and deployed. The b alloon had incomplete expansion. A 2.5 x 12 Noncompliant balloon was then placed across the lesion a nd deployed. The balloon had incomplete expansion. A 2.75 x 12 Noncompliant balloon was then placed across the lesion and deployed, with complete expansion. Followup angiography demonstrated residual stenosis. A 2.75 x 24 Synergy drug-eluting stent was then placed across the lesion and deployed. F ollowup angiography demonstrated RU-3 flow. No residual stenosis. THE LEFT LOWER EXTREMITY ANGIOGRAPHY VIA IPSILATERAL APPROACH WITH CATHETER PLACED IN THE LEFT COMMON ILIAC ARTERY: A straight flush catheter was placed in the left common iliac artery and images obtai dhara via hand injection through the straight flush catheter. The left common iliac bifurcated into th e internal and external iliac arteries. The left common iliac artery was diffusely diseased. In the proximal segment, there is sequential ectatic to stenotic 40% to 50% stenoses present. In the mid v essel, there is mild diffuse disease with no stenosis greater than 10%. The ostium of the left inter nal iliac had a 20% stenosis present. The left external iliac artery had mild luminal irregularities throughout, with no stenosis greater than 10% to 15%. The left external iliac artery turned into a left common femoral artery before bifurcating into the superficial and profunda femoral arteries. Th e left common femoral artery is free of any significant disease. COMPLICATIONS: None. CONCLUSIONS: 1. Patent obtuse marginal-1 stent. 2. 70% mid right coronary artery stenosis. 3. Status post successful stenting of the mid right coronary artery with Synergy drug-eluting stent. 4. Moderate peripheral vascular disease of the left common iliac artery. /[id number]/MODL
--- NOTE | 2017-01-27 16:16 | ASMTCMCOM ---
CM Note CM Note Notes: Reviewed chart. No case management d/c needs identified d/t pt age and scheduled procedure. No therapy eval ordered. Case Management d/c poc: Home independent when medically stable. Case Management available if needs change. Date Signed: 01/27/2017 04:15 PM Electronically Signed By:Savnanah Parsons RN
[2017-01-27] MEDS ORDERED: ATORVASTATIN CALCIUM 40 MG TAB PO SCH (21:00)
[2017-01-28 04:52] LABS: % IMMATURE GRANULYOCYTES 0.5 % (0.0-1.1); ABSOLUTE IMMATURE GRANULOCYTES 0.05 10^3/uL (0.00-0.10); ADD DIFF? NO; ADD MORPH? NO; ADD SCAN? NO; ATYPICAL LYMPHOCYTE FLAG 0 (0-99); FRAGMENT RBC FLAG 0 (0-99); HEMATOCRIT 40.3 % (40.0-51.0); HEMOGLOBIN 13.5 g/dL (13.7-17.5); LEFT SHIFT FLG 0 (0-99); LIPEMIA HEMOLYSIS FLAG 80 (0-99); MEAN CELL HEMOGLOBIN 30.9 pg (27.9-34.1); MEAN CELL HEMOGLOBIN CONCENTR. 33.5 g/dL (32.4-36.7); MEAN CELL VOLUME 92.2 fL (81.5-99.8); MEAN PLATELET VOLUME 11.5 fL (8.7-11.7); PLATELET CLUMPS FLAG 0 (0-99); PLATELET COUNT 181 10^3/uL (150-400); RED BLOOD CELL COUNT 4.37 10^6/uL (4.40-6.38); RED CELL DISTRIBUTION WIDTH 13.4 % (11.5-15.2)
[2017-01-28 04:58] LABS: ANION GAP 8 mEq/L (8-16); CALCIUM 8.7 mg/dL (8.5-10.4); CARBON DIOXIDE 27 mEq/l (22-31); CHLORIDE 105 mEq/L (97-110); CREATININE 0.9 mg/dL (0.7-1.3); GLOMERULAR FILTRATION RATE > 60; GLUCOSE 102 mg/dL (70-100); POTASSIUM 5.1 mEq/L (3.5-5.2); SODIUM 140 mEq/L (134-144)
[2017-01-28 08:07] VITALS: BP 131/78; PULSE 60; RESP 11; TEMP 98.2; O2SAT 95
[2017-01-28] MEDS ORDERED: ATORVASTATIN CALCIUM 40 MG TAB PO SCH (09:00)
[2017-01-28] MEDS ORDERED: CLOPIDOGREL BISULFATE 75 MG TAB PO SCH (09:00)
[2017-01-28] MEDS ORDERED: TAMSULOSIN HCL 0.4 MG CAP PO SCH (09:00)
[2017-01-28] MEDS ORDERED: LISINOPRIL 5 MG TAB PO SCH (09:00)
[2017-01-28] MEDS ORDERED: ASPIRIN EC 81 MG TAB PO SCH (09:00)
--- NOTE | 2017-01-28 09:02 | CPEKG ---
Heart Rate: 58 RR Interval: 1034 QRSD Interval: 84 QT Interval: 428 QTC Interval: 421 QRS [place]: 4 T Wave [place]: 56 EKG Severity - ABNORMAL ECG - EKG Impression: NORMAL SINUS RHYTHM Electronically Signed By: Shawn Gaming 30-Jan-2017 14:03:10
--- NOTE | 2017-01-28 12:17 | GDS ---
[f rep st] DISCHARGE SUMMARY ADMISSION DIAGNOSES: 1. Coronary artery disease. 2. Hypertension. 3. Hyperlipidemia. 4. Sick sinus syndrome with recent pacemaker implantation. 5. Abnormal nuclear stress test. DISCHARGE DIAGNOSIS: 1. Coronary artery disease. 2. Status post percutaneous coronary intervention of the right coronary artery with 2.75 x 24 Synerg y drug-eluting stent implantation to the RCA. 3. Hypertension. 4. Hyperlipidemia. 5. Sick sinus syndrome, status post pacemaker implantation. 6. Peripheral vascular disease. PROCEDURES DONE DURING HOSPITALIZATION: 1. Electrocardiogram. 2. Diagnostic heart catheterization. 3. Percutaneous coronary intervention with WILI implantation to the RCA, 2.75 x 24 Synergy WILI. 4. Pacemaker interrogation. BRIEF HISTORY: Please see history and physical. Briefly, Mr. Thompson is a 61-year-old male with know n history of CAD, who has recently had a PCI of the obtuse marginal done 12/23, it was noted that he did have some disease in his right coronary artery, was planned to have a stress test as an outpatien t. Status post his first PCI, he was noted to have episodes of bradycardia, and underwent a Holter m onitoring which did note 6 second pauses. On 01/01, he did have a dual lead Biotronik pacemaker impl antation done. He is more recently reporting being asymptomatic, underwent MPI study, showing ischem ia in inferior wall. It was decided, due to his history of CAD, he would undergo cardiac catheteriza tion and percutaneous coronary intervention. HOSPITAL COURSE: Patient was admitted to [facility], prepped for procedure and taken to the cardiac cathete rization lab. There, Dr. Greene performed a diagnostic heart catheterization on him, results showing left main to be normal in appearance, LAD was noted to have mild diffuse disease, but no greater yudith nosis than 20%, circumflex coronary had mild diffuse disease throughout. The circumflex coronary did give rise to a prominent branch of the OM. Previously placed stent was seen well opposed, with no e vidence of in-stent restenoses, right coronary was shot, showing a 70% eccentric calcified plaque. A t that point, Dr. Greene proceeded on with intervention, noting was able to angioplasty and then foll owed by stent deployment in the RCA with no complications. Afterwards, it was noted off previous car diac catheterization that patient did have some iliac artery disease. An angiogram was done,showing 40% to 50% stenosis. No intervention was performed at that time. Sheath was removed, patient was ta nahid back to the CVC, placed on the telemetry unit overnight. There he has remained sinus rhythm, rep orting no symptoms suggesting of ischemia. He has been up and walking in the unit without any sympto ms. PHYSICAL EXAMINATION: GENERAL APPEARANCE: Medium built, mildly obese, male. He is alert and oriented to person, place, time, situation. Appears to be under no acute distress. CURRENT DARIO L SIGNS: Blood pressure 131/78, heart rate of 60 sinus rhythm on the monitor, respiration 12, satura ting 95% on room air. Temperature 36.8 degrees Celsius. HEENT: Head is normocephalic. Lips and to ngue are pink and moist with no signs of cyanosis. Conjunctivae pink. NECK: Trachea is midline, +2 carotid pulses bilateral, no auscultated bruits, no jugular vein distention. RESPIRATORY: Lungs cl ear to auscultation. No rhonchi, rales or wheezes. No accessory muscle use. No intercostal muscle retraction noted. CARDIAC: Regular rate, regular rhythm, S1, S2, no S3, S4, gallops, rubs or murmur s noted. ABDOMEN: Soft, nontender, bowel sounds x4 quadrants, no organomegaly, no palpable masses. SKIN: [place], warm, dry, no cyanosis, no clubbing, no peripheral edema. CATHETER INSERTION SITE: Le ft groin site for femoral artery access, no redness, swelling, drainage, ecchymosis or hematoma, no a uscultated bruit over puncture site. VASCULAR: +2 carotids bilateral, +2 radials bilateral, +1 dors al pedal and posterior tibial pulses bilateral. LABORATORY DATA: Laboratory studies drawn today show WBC of 9.40, hemoglobin of 13.5, hematocrit 40. 3, platelet count of 181. Sodium 140, potassium 5.1, chloride 105, CO2 27, BUN 15, creatinine 0.9, g lucose 102, calcium 8.7. On day of admission, patient was noted to have total cholesterol of 120, tr iglycerides 86, LDL of 70. STUDIES: Diagnostic heart catheterization and percutaneous coronary intervention as above, electroca rdiogram done today shows sinus rhythm, with no significant ST or T-wave abnormalities. DEVICE CHECK: Biotronik retail service representative came in and did a one-month followup device check today on nancy mistry's pacemaker, showing device functioning within normal limits. DISCHARGE DISPOSITION: Patient will be discharged home in stable condition. He is under activity re strictions of not lifting more than 10 pounds for the next week and no strenuous activity for the nex t 2 weeks. DISCHARGE MEDICATIONS: Please see discharge medication reconciliation sheet, note patient has been c ontinue on current anti-platelet therapy of aspirin and clopidogrel. Also patient continues on regul ar dose of atorvastatin. No change in current blood pressure medication changes. DISCHARGE INSTRUCTIONS: Post percutaneous coronary intervention discharge instructions went over wit h the patient including monitoring for signs of infection, importance of medication compliance, activ ity restrictions. Patient verbalizes understanding instructions. He has no questions. He does have a followup appointment set up with Dr. Gaming on 02/11 in our office, sooner if necessary. Patient was told that if any problems or concerns post discharge, he is to call our office or return to the ospital. Total time spent on discharge: Greater than 30 minutes. /[id number]/MODL
== END 2017-01-28 12:19 | disposition home or self-care (01) ==
LOC: FCATH 06:33 → F2W 10:20
PROVIDERS: ADMIT Internal Medicine Cardiovascular Disease; ATTEND Internal Medicine Cardiovascular Disease
PROC: 4B02XSZ Measurement of Cardiac Pacemaker, External Approach (ICD-10-PCS; principal; 2017-01-27)
PROC: B2111ZZ Fluoroscopy of Multiple Coronary Arteries using Low Osmolar Contrast (ICD-10-PCS; principal; 2017-01-27)
PROC: B41G1ZZ Fluoroscopy of Left Lower Extremity Arteries using Low Osmolar Contrast (ICD-10-PCS; principal; 2017-01-27)
PROC: 027034Z Dilation of Coronary Artery, One Artery with Drug-eluting Intraluminal Device, Percutaneous Approach (ICD-10-PCS; principal; 2017-01-27)
PROC: 4A023N7 Measurement of Cardiac Sampling and Pressure, Left Heart, Percutaneous Approach (ICD-10-PCS; principal; 2017-01-27)
DX: I25.10 Atherosclerotic heart disease of native coronary artery without angina pectoris (principal); I10 Essential (primary) hypertension; E78.5 Hyperlipidemia, unspecified; Z95.0 Presence of cardiac pacemaker; I70.8 Atherosclerosis of other arteries; E66.09 Other obesity due to excess calories; Z68.31 Body mass index [BMI] 31.0-31.9, adult
CPT/HCPCS: 75710; 92928; 93005; 93454; C1725; C1769; C1887; G0378; C1760; C1874; C9600; J0461; J0583; J1200; J2250; J3010; Q9967